=== PATIENT | female | born 1985 | race African-American/Black ===

== ENCOUNTER → 2024-11-16 11:24 | Outpatient (REF) | payer OTHER, SELFPAY ==
[2024-11-18 12:17] LABS: Quantiferon Mitogen minus NIL 9.42 IU/mL; Quantiferon NIL 0.59 IU/mL; Quantiferon TB Gold Plus Negative (Negative)
== END ==
LOC: OHS 11:24
PROVIDERS: ATTENDING PHYSICIAN Nurse Practitioner Family
DX: Z23 Encounter for immunization (principal)
CPT/HCPCS: 36415; 86480